=== PATIENT | male | born 1975 | race Caucasian/White ===

== ENCOUNTER 2017-08-03 08:32 | Inpatient (IN) | payer OTHER ==
[~2017-08-03 08:32] MED LIST: BACITRACIN 50,000 UNITS/10 ML SYR IRR ONE; BUPIVACAINE 0.25% 30 ML SDV ONE; CHLORHEXIDINE GLUC HIBICLENS 118 ML BTL TP ONE; CITRATE DEXTROSE SOLN 500 ML BAG ONE; THROMBIN (BOVINE) 20,000 UNIT VIAL TP ONE; TRANEXAMIC ACID 1,000 MG in NS (SYRINGE) 50 ML IV ONE
[2017-08-03] MEDS ORDERED: ceFAZolin 2 GM/SWFI 2 GM/20 ML SYR IVP ONE (09:35)
[2017-08-03] MEDS ORDERED: GABAPENTIN 300 MG CAP PO ONE (09:35)
[2017-08-03] MEDS ORDERED: fentaNYL 100 MCG/2 ML INJ IT ONE (09:35)
[2017-08-03] MEDS ORDERED: morphINE PF 5 MG/10 ML INJ IT ONE (09:35)
[2017-08-03] MEDS ORDERED: ACETAMINOPHEN 500 MG TAB PO ONE (09:35)
[2017-08-03] MEDS ORDERED: LR 1,000 ML IV ONE (09:36)
[2017-08-03] MEDS ORDERED: MORPHINE IT ONE (10:00)
[2017-08-03] MEDS ORDERED: FENTANYL IT ONE (10:00)
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
[2017-08-03] MEDS ORDERED: MIDAZOLAM 2 MG/2 ML VIAL IVP ONE (10:28)
[2017-08-03] MEDS ORDERED: fentaNYL 50 MCG in SYRINGE INTRATHECAL 1 SYR IT ONE (10:30)
[2017-08-03] MEDS ORDERED: morphINE PF 0.2 MG in SYRINGE INTRATHECAL 1 SYR IT ONE (10:30)
[2017-08-03] MEDS ORDERED: LIDOCAINE 2% 5 ML SDV ONE (10:44)
[2017-08-03] MEDS ORDERED: fentaNYL 100 MCG/2 ML INJ ONE ×4 (10:44→17:36)
[2017-08-03] MEDS ORDERED: PROPOFOL/EMULSION 500 MG/50 ML BOTTLE IV ONE ×3 (10:44→15:11)
[2017-08-03] MEDS ORDERED: PROPOFOL 200 MG/20 ML VIAL ONE (10:44)
[2017-08-03] MEDS ORDERED: REMIFENTANIL HCL 1 MG VIAL ONE ×3 (10:44→15:11)
[2017-08-03] MEDS ORDERED: ROCURONIUM 50 MG/5 ML VIAL ONE (10:44)
[2017-08-03] MEDS ORDERED: ONDANSETRON 4 MG/2 ML VIAL ONE ×2 (10:56→17:40)
[2017-08-03] MEDS ORDERED: DEXAMETHASONE 4 MG/ML VIAL ONE (10:56)
--- NOTE | 2017-08-03 11:23 | PDHPUP ---
History & Physical Update H&P update statement: This history and physical update is based on an assessment of the patient which was completed after admission or registration (within 24 hours), but prior to the surgery/procedure. H&P update: H&P reviewed & patient examined, no change in patient's condition since H&P completed
[2017-08-03] MEDS ORDERED: BACITRACIN 50,000 UNITS/10 ML SYR IRR ONE (12:32)
[2017-08-03] MEDS ORDERED: ceFAZolin 1 GM VIAL ONE (14:44)
[2017-08-03] MEDS ORDERED: morphINE PF 5 MG/10 ML INJ ONE (14:45)
[2017-08-03] MEDS ORDERED: epHEDrine SULFATE 10 MG/ML SYR IVP PRN (15:38)
[2017-08-03] MEDS ORDERED: ONDANSETRON 4 MG/2 ML VIAL IVP PRN ×2 (15:38→17:21)
[2017-08-03] MEDS ORDERED: LABETALOL HCL 5 MG/ML 20 ML MDV IVP PRN (15:38)
[2017-08-03] MEDS ORDERED: NALOXONE HCL 0.4 MG/ML INJ IVP PRN ×2 (15:38→17:21)
[2017-08-03] MEDS ORDERED: PROMETHAZINE HCL 25 MG/ML INJ IVP PRN (15:38)
[2017-08-03] MEDS ORDERED: LR 500 ML IV PRN (15:38)
[2017-08-03] MEDS ORDERED: PHENYLEPHRINE HCL 100 MCG/ML SYR IVP PRN (15:38)
[2017-08-03] MEDS ORDERED: DIAZEPAM 5 MG/ML 1 ML SYR IVP PRN (15:38)
[2017-08-03] MEDS ORDERED: morphINE PCA 30 MG/30 ML PCA IV PRN (17:21)
[2017-08-03] MEDS ORDERED: BISACODYL 10 MG SUPP PR PRN (17:21)
[2017-08-03] MEDS ORDERED: diphenhydrAMINE 25 MG CAP PO PRN (17:21)
[2017-08-03] MEDS ORDERED: LACTULOSE 20 GM/30 ML UDCUP PO PRN (17:21)
[2017-08-03] MEDS ORDERED: MAGNESIUM HYDROXIDE 30 ML UDCUP PO PRN (17:21)
[2017-08-03] MEDS ORDERED: NS W/ 20 KCl/L 1,000 ML IV SCH (17:30)
--- NOTE | 2017-08-03 17:30 | SOAPPROG ---
SOAP Progress Note Assessment/Plan: Assessment: 41 yo M sp L3-S1 TLIF Plan: stable PT/OT GÓMEZ x1 lovenox in am lso brace when out of bed please call with neuro changes 08/03/17 17:29 Subjective: + back pain, no leg pain. Objective: Vital Signs Temp Pulse Resp BP Pulse Ox 36.6 C 68 18 139/103 H 94 08/03/17 10:35 08/03/17 10:35 08/03/17 10:35 08/03/17 10:35 08/03/17 10:35 somnolent PERRL, no facial droop MARION x 4 + light touch ICD10 Worksheet Patient Problems: Problems Problem Status Onset Fusion of spine of lumbar region Acute - ICD10 Problem Qualifiers (1) Fusion of spine of lumbar region
[2017-08-03] MEDS: fentaNYL 100 MCG/2 ML INJ IVP PRN ×2 (17:39→17:46)
[2017-08-03] MEDS ORDERED: HYDROmorphONE/DILAUDID 2 MG/ML INJ ONE (17:59)
[2017-08-03] MEDS: HYDROmorphONE/DILAUDID 2 MG/ML INJ IVP PRN ×4 (18:02→18:35)
--- NOTE | 2017-08-03 18:29 | POSTANESTH ---
Post Anesthetic Evaluation Cardiovascular Status: Normal, Stable, Similar to Pre-Op Cond Respiratory Status: Normal, Stable, Similar to Pre-op Cond. Level of Consciousness/Mental Status: Can Participate in Eval, Alert and Oriented Pain Control: Adequate, Prn Tx Ordered Nausea/Vomiting Control: Adequate, Prn Tx Ordered Complications Possibly Related to Anesthesia: None Noted
--- NOTE | 2017-08-03 19:48 | GOP ---
[f rep st] OPERATIVE REPORT DATE OF OPERATION: 08/03/2017 SURGEON: Morales oLmeli MD NEUROSURGEON: Morales Lomeli MD. DRUG CLERK: KARMA Guerra. ANESTHESIA: General endotracheal. PREOPERATIVE DIAGNOSIS: Severe multilevel lumbar degenerative joint disease and neuroforaminal encro achment with lateral recess impingement. Intractable back pain and intractable right greater than le ft lower extremity radiculopathy. Failed conservative care. POSTOPERATIVE DIAGNOSIS: Severe multilevel lumbar degenerative joint disease and neuroforaminal encr oachment with lateral recess impingement. Intractable back pain and intractable right greater than l eft lower extremity radiculopathy. Failed conservative care. PROCEDURE PERFORMED: Redo right L4-5 and L5-S1 posterior hemilaminectomy and facetectomy with new ri ght L3-4 far lateral transpedicular decompression. L3 through S1 posterior segmental (pedicle screw and axle device) fixation and posterolateral fusion with local autograft, bone morphogenic protein, a nd morselized allograft. L3-4, L4-5, and L5-S1 posterior/transforaminal lumbar interbody fusion with 2 structural PEEK interbody spacers, local autograft and bone morphogenic protein. Use of intraoper ative microscopy, fluoroscopy, and computer volumetric stereotactic navigation with intraoperative ne urophysiologic testing. FINDINGS: ESTIMATED BLOOD LOSS: 300 cc. INDICATIONS: The patient is a 41-year-old man with intractable low back pain and right greater than left lower extremity radicular symptoms secondary to severe multilevel lumbar degenerative joint dise ase and lateral recess and neural foraminal encroachment. He has failed extensive conservative care and presents now for surgical decompression and stabilization. DESCRIPTION OF PROCEDURE: After informed consent was obtained, the patient was taken to the operatin g room and placed in the prone position on the Saul table. The lumbosacral area was prepped and d raped in sterile fashion. After fluoroscopic localization of the correct levels, the subcutaneous an d intramuscular tissues were infiltrated with local anesthesia. A midline linear incision was then c reated over the L3 to S1 spinous processes. This was carried down in the fascial layer, which was th en incised using the monopolar electrocautery and carried in a subperiosteal plane along the spinous processes and out the lamina bilaterally. Intraoperative fluoroscopy was again utilized to verify th e correct levels. Following this, the microscope was brought in and a right-sided far lateral transp edicular decompression was performed at the L3-4 level with redo decompression and facetectomies at L 4-5 and L5-S1 on the right. There was an extensive amount of scar tissue that required very meticulo us dissection under high-power microscopy to avoid a CSF leak, but eventually thorough decompression s were performed. The DearJane neuronavigational system was then brought in and using computer volume tric stereotactic navigation, pedicle screws were placed at L3, L4, L5, and S1 bilaterally. Each ind ividual screw was tested neurophysiologically with monopolar electrostimulation and interpretation of the potentials by the surgeon. One of the screws stimulated low at S1 on the right, and the O-arm n euronavigational system was then brought in and 3-D reconstructed images obtained. The screws all ap peared to be in good position. Serial distraction was created across each interspace at the L3-4, th en L4-5, then L5-S1 level separately, during which time a complete diskectomy was performed at each l evel with preparation of the endplates and placement of 2 structural PEEK interbody spacers, local au tograft and bone morphogenic protein for L3-4, L4-5 and L5-S1 posterior/transforaminal lumbar interbo dy fusions. The smaller rods were then removed and appropriately sized maximally lordotic rods were then placed at the L3 to S1 levels, and a slight amount of compression created across each interspace in order to facilitate bony union and to minimize the potential for posterior graft migration. The remaining lamina and facet joints on the left were then extensively decorticated, and the residual lo la autograft along with bone morphogenic protein and morselized allograft were placed out laterally for a posterolateral fusion from L3 to S1. A drain was then placed. The subcutaneous and intramuscu lar tissues were re-infiltrated with local anesthesia and the wound was closed in a layered fashion u sing interrupted Vicryl sutures followed by Steri-Strips on the skin. COMPLICATIONS: None. DISPOSITION: The patient is currently in the process of being repositioned for extubation. /[id number]/MODL
[2017-08-03] MEDS ORDERED: ceFAZolin 2 GM/DEXTROSE 100 ML IV SCH (22:00)
[2017-08-03] MEDS: PROMETHAZINE HCL 25 MG/ML INJ IVP PRN ×2 (22:07→22:52)
[2017-08-03] MEDS: ceFAZolin 2 GM/SWFI 2 GM/20 ML SYR IVP SCH (22:09)
[2017-08-03] MEDS: ACETAMINOPHEN 500 MG TAB PO SCH (23:00)
[2017-08-03] MEDS: FAMOTIDINE 20 MG TAB PO SCH (23:01)
[2017-08-03] MEDS: SENNOSIDES/DOCUSATE SODIUM TAB PO SCH (23:01)
[2017-08-03] MEDS: GABAPENTIN 100 MG CAP PO SCH (23:01)
[2017-08-03] MEDS: morphINE SR 30 MG TAB PO SCH (23:01)
[2017-08-03] MEDS: POLYETHYLENE GLYCOL 3350 17 GM PKT PO SCH (23:01)
[2017-08-04] MEDS: morphINE SR 30 MG TAB PO SCH ×3 (00:19→20:22)
[2017-08-04] MEDS: ONDANSETRON DISINTEGRATING 4 MG TAB PO PRN (00:20)
[2017-08-04] MEDS: PROMETHAZINE HCL 25 MG/ML INJ IVP PRN (04:56)
[2017-08-04] MEDS: oxyCODONE IR 5 MG TAB PO PRN ×3 (04:59→20:22)
[2017-08-04] MEDS: METHOCARBAMOL 750 MG TAB PO PRN ×3 (04:59→18:30)
[2017-08-04] MEDS: ceFAZolin 2 GM/SWFI 2 GM/20 ML SYR IVP SCH (05:01)
[2017-08-04 05:12] LABS: PLATELET COUNT 239 10^3/uL (150-400)
[2017-08-04] MEDS: ACETAMINOPHEN 500 MG TAB PO SCH ×3 (06:09→21:39)
--- NOTE | 2017-08-04 07:32 | NEUSURGPN ---
Date of Surgery: 08/03/17 Post Op Day: 1 Assessment/Plan: Assessment: 41 yo M s/p L3-S1 TLIF POD #1 Plan: -neuro stable -s/p TLIF L3-S1-pt with expected back pain, legs feel ok -pain management still an issue-working on switching to PO medications -will trial oral dilaudid as well as a transdermal patch scolopamine -continue with PT/OT -GÓMEZ x 1-still productive -lovenox to start today -LSO brace when out of bed -d/w Dr Boss -please call with neuro changes Subjective: Awake and alert. NAD. Eating/drinking and voiding. No f/c/n/v/d. No encinas/neck/ chest/abd or gu complaints. Objective: AAO x 3, PERRLA/EOMI no droop CN 2-12 grossly intact +lt touch 5/5 BUE/BLE = CDI GÓMEZ in place Neuro Check Frequency: per routine Urinary Catheter in Place: No - Physician Discussed Patient with DrSalas: Yani Neurosurgery Physical Exam - Vitals, I&O, Labs I and O 08/03/17 08/04/17 08/05/17 05:59 05:59 05:59 Intake Total 3500 Output Total 1120 70 Balance 2380 -70 Weight 97.522 kg Intake: Oral (ml) 1000 IV Intake (ml) 2500 Output: Urine (ml) 600 Catheter 600 Estimated Blood Loss (ml) 300 GÓMEZ Drain Output (ml) 220 70 Right Back Saul Kamara 220 70 Other: Number of Emesis 2 Occurrences Vital Signs Temp Pulse Resp BP Pulse Ox 36.8 C 61 16 101/73 98 08/04/17 04:40 08/04/17 04:40 08/04/17 04:40 08/04/17 04:40 08/04/17 04:40 Laboratory Results 08/04/17 04:40 08/04/17 04:40 ICD10 Worksheet Patient Problems: Problems Problem Status Onset Fusion of spine of lumbar region Acute
[2017-08-04] MEDS: HYDROmorphONE/DILAUDID 4 MG TAB PO PRN ×4 (08:28→20:20)
[2017-08-04] MEDS: SCOPOLAMINE HYDROBROMIDE 1 MG/3 DAYS PATCH TD SCH (08:28)
[2017-08-04] MEDS: SENNOSIDES/DOCUSATE SODIUM TAB PO SCH ×2 (08:34→20:21)
[2017-08-04] MEDS: ENOXAPARIN 40 MG/0.4 ML SYR SC SCH (08:35)
[2017-08-04] MEDS: FAMOTIDINE 20 MG TAB PO SCH ×2 (08:35→21:13)
[2017-08-04] MEDS: POLYETHYLENE GLYCOL 3350 17 GM PKT PO SCH ×3 (08:35→23:01)
[2017-08-04] MEDS ORDERED: NON-FORMULARY NEW DRUG (Ranitidine Hcl [Zantac 75] 75 MG) PO SCH (09:00)
--- NOTE | 2017-08-04 09:43 | PDMN ---
Medical Necessity Medical necessity: MCG S820 TLIF- 3 days INPT only
--- NOTE | 2017-08-04 15:36 | ASMTCMCOM ---
CM Note CM Note Notes: Pt s/p TLIF L3-S1. Today OT rec home, PT rec inpatient rehab. Pt resides w girlfriend and child. CM to follow. Date Signed: 08/04/2017 03:36 PM Electronically Signed By:JESSICA Jean
[2017-08-04] MEDS: GABAPENTIN 100 MG CAP PO SCH (20:20)
[2017-08-04] MEDS: DIAZEPAM 5 MG TAB PO PRN (21:39)
[2017-08-05] MEDS: HYDROmorphONE/DILAUDID 4 MG TAB PO PRN ×5 (01:57→20:36)
[2017-08-05] MEDS: METHOCARBAMOL 750 MG TAB PO PRN ×3 (01:58→13:55)
[2017-08-05] MEDS: oxyCODONE IR 5 MG TAB PO PRN ×3 (05:28→18:43)
[2017-08-05] MEDS: DIAZEPAM 5 MG TAB PO PRN ×3 (05:28→20:36)
[2017-08-05] MEDS: ACETAMINOPHEN 500 MG TAB PO SCH ×3 (05:38→22:07)
--- NOTE | 2017-08-05 07:17 | NEUSURGPN ---
Date of Surgery: 08/03/17 Post Op Day: 2 Assessment/Plan: Assessment: 41 yo M s/p L3-S1 TLIF POD #2 Plan: -neuro stable -s/p TLIF L3-S1-pt with expected back pain, legs feel ok -pain management still an issue-working on switching to PO medications-better with valium -will trial oral dilaudid as well as a transdermal patch scolopamine -continue with PT/OT -GÓMEZ x 1-still productive -on lovenox -LSO brace when out of bed -d/w and seen by Dr Boss -please call with neuro changes Subjective: Pt has much better pain control today, states yesterday was the worst He says the valium has been the most helpful. Currently just having pain over incision site, and in the right buttock Both improved from yesterday, currently 6/10 pain He says he is hoping to get up and do more with PT/OT Yesterday was only able to take a few steps and sit at bedside due to pain Objective: AAO x 3, PERRLA/EOMI no droop CN 2-12 grossly intact +lt touch 5/5 BUE/BLE = CDI GÓMEZ in place Neuro Check Frequency: per routine Urinary Catheter in Place: No - Physician Discussed Patient with : Yani Patient Seen by : Yani Neurosurgery Physical Exam - Vitals, I&O, Labs I and O 08/04/17 08/05/17 08/06/17 05:59 05:59 05:59 Intake Total 3500 2830 Output Total 1120 2445 Balance 2380 385 Weight 97.522 kg Intake: Oral (ml) 1000 2830 IV Intake (ml) 2500 Output: Urine (ml) 600 2020 Catheter 600 Urinal 2020 Estimated Blood Loss (ml) 300 GÓMEZ Drain Output (ml) 220 425 Right Back Saul Kamara 220 425 Other: Intake Quantity Yes Sufficient Number of Voids Catheter 2 Urinal 2 Number of Emesis 2 Occurrences Vital Signs Temp Pulse Resp BP Pulse Ox 36.5 C 61 16 125/70 H 97 08/05/17 04:00 08/05/17 04:00 08/05/17 04:00 08/05/17 04:00 08/05/17 04:00 Laboratory Results 08/04/17 04:40 08/04/17 04:40 ICD10 Worksheet Patient Problems: Problems Problem Status Onset Fusion of spine of lumbar region Acute
[2017-08-05] MEDS: POLYETHYLENE GLYCOL 3350 17 GM PKT PO SCH ×3 (09:28→22:07)
[2017-08-05] MEDS: SENNOSIDES/DOCUSATE SODIUM TAB PO SCH ×2 (09:28→20:37)
[2017-08-05] MEDS: ENOXAPARIN 40 MG/0.4 ML SYR SC SCH (09:29)
[2017-08-05] MEDS: FAMOTIDINE 20 MG TAB PO SCH ×2 (09:29→20:37)
[2017-08-05] MEDS: morphINE SR 30 MG TAB PO SCH ×2 (09:29→20:35)
[2017-08-05] MEDS: ONDANSETRON DISINTEGRATING 4 MG TAB PO PRN (09:36)
--- NOTE | 2017-08-05 14:17 | ASMTCMCOM ---
CM Note CM Note Notes: Spoke w pt and family, pt wants to d/c home and is open to [facility]. Pain management still an issue. Pt does not qualify for [facility] inpatient rehab. CM to follow. Date Signed: 08/05/2017 02:17 PM Electronically Signed By:JESSICA Jean
[2017-08-05] MEDS: GABAPENTIN 100 MG CAP PO SCH (20:34)
[2017-08-06] MEDS: HYDROmorphONE/DILAUDID 4 MG TAB PO PRN ×6 (00:20→21:29)
[2017-08-06] MEDS: METHOCARBAMOL 750 MG TAB PO PRN ×5 (04:41→23:25)
[2017-08-06] MEDS: ACETAMINOPHEN 500 MG TAB PO SCH ×2 (06:06→13:00)
[2017-08-06] MEDS: oxyCODONE IR 5 MG TAB PO PRN ×3 (06:30→23:25)
--- NOTE | 2017-08-06 07:27 | SOAPPROG ---
SOAP Progress Note Assessment/Plan: Assessment: 41 yo M POD #3 L3-S1 TLIF Plan: stable post op x-rays show good position of the hardware PT/OT GÓMEZ x1 lovenox/scd/sandrita for dvt prophylaxis lso brace when out of bed DC product specialist to evaluate rehab options ok to dc today if placement available please call with neuro changes discussed with Dr Boss 08/03/17 17:29 08/06/17 07:25 Subjective: continued back pain and pain in right thigh. No weakness. Objective: Vital Signs Temp Pulse Resp BP Pulse Ox 36.9 C 91 16 105/63 97 08/06/17 00:00 08/06/17 00:00 08/06/17 00:00 08/06/17 00:00 08/06/17 00:00 Laboratory Results 08/04/17 04:40 08/04/17 04:40 08/05/17 08/06/17 08/07/17 05:59 05:59 05:59 Intake Total 2830 1500 700 Output Total 2445 2470 490 Balance 385 -970 210 AAOx4, +FC PERRL, no facial droop 5/5 + light touch C/D/I ICD10 Worksheet Patient Problems: Problems Problem Status Onset Fusion of spine of lumbar region Acute - ICD10 Problem Qualifiers (1) Fusion of spine of lumbar region
[2017-08-06] MEDS: FAMOTIDINE 20 MG TAB PO SCH ×2 (08:39→20:37)
[2017-08-06] MEDS: ENOXAPARIN 40 MG/0.4 ML SYR SC SCH (08:39)
[2017-08-06] MEDS: SENNOSIDES/DOCUSATE SODIUM TAB PO SCH ×2 (08:40→23:23)
[2017-08-06] MEDS: POLYETHYLENE GLYCOL 3350 17 GM PKT PO SCH ×3 (08:41→23:23)
[2017-08-06] MEDS: morphINE SR 30 MG TAB PO SCH ×2 (08:41→20:36)
[2017-08-06] MEDS: ONDANSETRON DISINTEGRATING 4 MG TAB PO PRN ×2 (10:02→20:38)
--- NOTE | 2017-08-06 15:22 | ASMTCMCOM ---
CM Note CM Note Notes: Today pt and verbalized d/c home is not the safest right now especially since pt will have to return work, leaving pt alone for a significant portion of the day. SNF referrals sent to [facility] and [facility]. Pt is accepted at all SNFs and [facility] has authorized SNF. [facility] is pt #1 choice due to location. There is no bed availability today at any of the SNF choices, d/c likely tomorrow. Pt would prefer an am d/c and transport since she has to work at 12:30. CM to follow. D/c plan of care: [facility] SN[facility] Date Signed: 08/06/2017 03:21 PM Electronically Signed By:JESSICA Jean
[2017-08-06] MEDS: DIAZEPAM 5 MG TAB PO PRN (20:36)
[2017-08-06] MEDS: GABAPENTIN 100 MG CAP PO SCH (20:37)
[2017-08-06] MEDS: PATCH REMOVAL 1 EA PATCH TD SCH (23:51)
[2017-08-07] MEDS: ACETAMINOPHEN 500 MG TAB PO SCH ×3 (00:39→14:49)
[2017-08-07] MEDS: HYDROmorphONE/DILAUDID 4 MG TAB PO PRN ×4 (02:40→14:50)
[2017-08-07] MEDS: METHOCARBAMOL 750 MG TAB PO PRN ×3 (05:53→14:50)
[2017-08-07] MEDS: morphINE SR 30 MG TAB PO SCH (08:20)
[2017-08-07] MEDS: ENOXAPARIN 40 MG/0.4 ML SYR SC SCH (08:20)
[2017-08-07] MEDS: FAMOTIDINE 20 MG TAB PO SCH (08:20)
[2017-08-07] MEDS: SCOPOLAMINE HYDROBROMIDE 1 MG/3 DAYS PATCH TD SCH (08:21)
[2017-08-07] MEDS: PATCH REMOVAL 1 EA PATCH TD SCH (08:21)
[2017-08-07] MEDS: POLYETHYLENE GLYCOL 3350 17 GM PKT PO SCH (08:22)
[2017-08-07] MEDS: SENNOSIDES/DOCUSATE SODIUM TAB PO SCH (08:22)
[2017-08-07] MEDS: oxyCODONE IR 5 MG TAB PO PRN ×2 (08:25→11:56)
[2017-08-07 09:00] VITALS: BP 117/88
[2017-08-07] MEDS: ONDANSETRON DISINTEGRATING 4 MG TAB PO PRN ×2 (09:56→14:52)
--- NOTE | 2017-08-07 10:06 | NEUSURGPN ---
Assessment/Plan: Assessment: 41 yo M POD #4 L3-S1 TLIF Plan: stable post op x-rays show good position of the hardware PT/OT GÓMEZ x1 - will see if pt can go to SNF with this or not. lovenox/scd/sandrita for dvt prophylaxis lso brace when out of bed Plan to dc today to SNF please call with neuro changes discussed with Dr Boss Subjective: Pt resting in bed, had a rough night pain [place]. Ready to go to SNF. States he is improving overall over the past few days. Objective: AAOx3 NAD VSS MAEx4 Motor 5/5 BLE +LT GÓMEZ drain with serosangineous dc in bulb Urinary Catheter in Place: No - Physician Discussed Patient with Dr.: Yani Neurosurgery Physical Exam - Vitals, I&O, Labs I and O 08/06/17 08/07/17 08/08/17 05:59 05:59 05:59 Intake Total 1500 700 800 Output Total 2470 520 770 Balance -970 180 30 Intake: Oral (ml) 1500 700 800 Output: Urine (ml) 2300 450 700 Toilet 700 Urinal 2300 450 GÓMEZ Drain Output (ml) 170 70 70 Right Back Saul Kamara 170 70 70 Other: Intake Quantity Yes Sufficient Number of Voids Toilet 2 Urinal 1 Number of Stools Toilet 1 Vital Signs Temp Pulse Resp BP Pulse Ox 36.8 C 75 15 117/88 H 96 08/07/17 08:00 08/07/17 08:00 08/07/17 08:00 08/07/17 08:00 08/07/17 08:00 Laboratory Results 08/04/17 04:40 08/04/17 04:40 ICD10 Worksheet Patient Problems: Problems Problem Status Onset Fusion of spine of lumbar region Acute
--- NOTE | 2017-08-07 10:13 | PDIAF ---
- Diagnosis Code Status: Full Code - Medication Management Discharge Medications: Medications to Continue on Transfer Gabapentin [Neurontin 100 MG (*)] 100 - 300 mg PO HS 07/27/17 [Last Taken Unknown] Diazepam [Valium 5 MG (*)] 5 mg PO Q6HRS PRN tab 08/07/17 [Last Taken Unknown] Enoxaparin [Lovenox 40 MG (*)] 40 mg SC DAILY syr 08/07/17 [Last Taken Unknown] HYDROmorphone HCL [Dilaudid 4 mg (*)] 4 mg PO Q4HRS PRN tab 08/07/17 [Last Taken Unknown] Methocarbamol [Robaxin 750 mg (*)] 750 mg PO QID PRN tab 08/07/17 [Last Taken Unknown] Polyethylene Glycol 3350 [Miralax 17 gm (*)] 17 gm PO TID pkt 08/07/17 [Last Taken Unknown] morphINE SR [MS Contin/Oramorph SR 30 mg (*)] 30 mg PO BID tab 08/07/17 [Last Taken Unknown] oxyCODONE IR [Oxycodone Ir (*)] 5 - 10 mg PO Q4HRS PRN tab 08/07/17 [Last Taken Unknown] Discharge Medications: Refer to the Discharge Home Medication list for PRN reason. - Orders Services needed: Registered Nurse, Physical Therapy, Occupational Therapy Diet Recommendation: no restrictions on diet Diet Texture: Regular Texture Diet Wound Care Instructions: Remove GÓMEZ drain on 08/08/17 Additional Instructions: No bending/lifting/twisting wear brace when out of bed 5-10lb weight limit Keep incision clean dry and intact Remove GÓMEZ drain on Thursday08/08/17 - Follow Up Care Current Providers and Referrals: Lary Candelaria NP [Primary Care Provider] - Morales Lomeli MD [Medical Doctor] -
--- NOTE | 2017-08-07 16:34 | ASMTCMCOM ---
CM Note CM Note Notes: Pt medically stable for d/c to [facility] SNF, [facility] auth is for 14 days. Mora with [facility] scheduled wc van transport, pt declined paying for stretcher. Orders sent in [employer]. [facility] to call report. Pt family updated. Date Signed: 08/07/2017 04:33 PM Electronically Signed By:JESSICA Jean
--- NOTE | 2017-08-07 16:34 | ASDISCHSUM ---
Discharge Information Plan Status:SNF Medically Cleared to Leave: Discharge Date:08/07/2017 03:10 PM CM D/C Disposition:Detention Facility ADT D/C Disposition:Detention Facility Projected Discharge Date:08/06/2017 11:00 AM Transportation at D/C:Wheelchair Van Discharge Delay Reason: Follow-Up Date:08/06/2017 11:00 AM Discharge Slot: Final Diagnosis: Placement Information Referral Type:*Fpc/SNF Referral ID:[id number] Provider Name:[facility] Address 1:[address] Address 2: City:[place] Selection Factors: State:[place] Patient Contact Information Contact Name:JALYN Relationship:Other Address:[address] Work Phone: City:[place] Alternate Phone: State/Zip Code:[place] [address] Email: Financial Information Financial Class:[facility] Primary Plan Desc:[facility] Primary Plan Number:[id number] Secondary Plan Desc: Secondary Plan Number: Assessment Information [facility] CM Progress Note CM Note CM Note Notes: Pt s/p TLIF L3-S1. Today OT rec home, PT rec inpatient rehab. Pt resides w girlfriend and child. CM to follow. Date Signed: 08/04/2017 03:36 PM Electronically Signed By:JESSICA Jean [facility] CM Progress Note CM Note CM Note Notes: Spoke w pt and family, pt wants to d/c home and is open to [facility]. Pain management still an issue. Pt does not qualify for [facility] inpatient rehab. CM to follow. Date Signed: 08/05/2017 02:17 PM Electronically Signed By:JESSICA Jean [facility] CM Progress Note CM Note CM Note Notes: Today pt and verbalized d/c home is not the safest right now especially since pt will have to return work, leaving pt alone for a significant portion of the day. SNF referrals sent to [facility] and [facility]. Pt is accepted at all [facility] and [facility] has authorized SNF. [facility] is pt #1 choice due to location. There is no bed availability today at any of the SNF choices, d/c likely tomorrow. Pt would prefer an am d/c and transport since she has to work at 12:30. CM to follow. D/c plan of care: [facility] Date Signed: 08/06/2017 03:21 PM Electronically Signed By:JESSICA Jean [facility] CM Progress Note CM Note CM Note Notes[facility] Mora with [facility] scheduled wc van transport, pt declined paying for stretcher. Orders sent in [employer]. [facility] Sal[facility] to call report. Pt family updated. Date Signed: 08/07/2017 04:33 PM Electronically Signed By:JESSICA Jean Intervention Information
== END 2017-08-07 15:10 | DRG 455 ==
LOC: F3N 08:32
PROVIDERS: ADMIT Neurological Surgery; ATTEND Neurological Surgery
PROC: 0SG1071 Fusion of 2 or more Lumbar Vertebral Joints with Autologous Tissue Substitute, Posterior Approach, Posterior Column, Open Approach (ICD-10-PCS; principal; 2017-08-03 10:45)
PROC: 0ST20ZZ Resection of Lumbar Vertebral Disc, Open Approach (ICD-10-PCS; principal; 2017-08-03 10:45)
PROC: 0SG10AJ Fusion of 2 or more Lumbar Vertebral Joints with Interbody Fusion Device, Posterior Approach, Anterior Column, Open Approach (ICD-10-PCS; principal; 2017-08-03 10:45)
PROC: 8E0WXBZ Computer Assisted Procedure of Trunk Region (ICD-10-PCS; principal; 2017-08-03 10:45)
PROC: 0SG3071 Fusion of Lumbosacral Joint with Autologous Tissue Substitute, Posterior Approach, Posterior Column, Open Approach (ICD-10-PCS; principal; 2017-08-03 10:45)
PROC: 4A1004G Monitoring of Central Nervous Electrical Activity, Intraoperative, Open Approach (ICD-10-PCS; principal; 2017-08-03 10:45)
PROC: 00NY0ZZ Release Lumbar Spinal Cord, Open Approach (ICD-10-PCS; principal; 2017-08-03 10:45)
PROC: 0SG30AJ Fusion of Lumbosacral Joint with Interbody Fusion Device, Posterior Approach, Anterior Column, Open Approach (ICD-10-PCS; principal; 2017-08-03 10:45)
DX: M51.36 Other intervertebral disc degeneration, lumbar region (principal); M51.16 Intervertebral disc disorders with radiculopathy, lumbar region; E03.9 Hypothyroidism, unspecified
CPT/HCPCS: 97110-GP; 97116-GP; 97162-GP; 97165-GO; 97530-GO; 97530-GP; 97535-GO; C1713; C1762; J0171; J0690; J1100; J1170; J1650; J2250; J2270; J2274; J2405; J2550; J2704; J3010; J7060

== ENCOUNTER 2018-05-13 05:26 | Inpatient (IN) | payer OTHER ==
[2018-05-13] MEDS ORDERED: GABAPENTIN 300 MG CAP PO ONE (05:38)
[2018-05-13] MEDS ORDERED: ACETAMINOPHEN 500 MG TAB PO ONE (05:38)
[2018-05-13] MEDS ORDERED: fentaNYL 50 MCG in SYRINGE INTRATHECAL 1 SYR IT ONE (05:38)
[2018-05-13] MEDS ORDERED: morphINE PF 0.2 MG in SYRINGE INTRATHECAL 1 SYR IT ONE (05:38)
[2018-05-13] MEDS ORDERED: ceFAZolin 2 GM/DEXTROSE 100 ML IV ONE (05:38)
[2018-05-13] MEDS ORDERED: LIDOCAINE 1% 2 ML INJ ID PRN (05:39)
[2018-05-13] MEDS ORDERED: LR 1,000 ML IV ONE (05:39)
[2018-05-13] MEDS ORDERED: CHLORHEXIDINE GLUC HIBICLENS 118 ML BTL TP ONE (06:43)
[2018-05-13] MEDS ORDERED: BUPIVACAINE 0.25% 30 ML SDV ONE ×2 (06:43→08:02)
[2018-05-13] MEDS ORDERED: EPINEPHrine 1 MG/ML INJ ONE (06:43)
[2018-05-13] MEDS ORDERED: THROMBIN (BOVINE) 5,000 UNIT VIAL TP ONE (06:43)
[2018-05-13] MEDS ORDERED: BACITRACIN 50,000 UNITS/10 ML SYR IRR ONE (06:44)
[2018-05-13] MEDS ORDERED: MIDAZOLAM 2 MG/2 ML VIAL ONE (07:05)
[2018-05-13] MEDS ORDERED: MIDAZOLAM 2 MG/2 ML VIAL IVP ONE (07:06)
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
[2018-05-13] MEDS ORDERED: REMIFENTANIL HCL 1 MG VIAL ONE (07:09)
[2018-05-13] MEDS ORDERED: PROPOFOL/EMULSION 500 MG/50 ML BOTTLE IV ONE (07:09)
[2018-05-13] MEDS ORDERED: PROPOFOL 200 MG/20 ML VIAL ONE (07:09)
[2018-05-13] MEDS ORDERED: fentaNYL 100 MCG/2 ML INJ ONE ×2 (07:13→09:55)
[2018-05-13] MEDS ORDERED: ROCURONIUM 50 MG/5 ML VIAL ONE (07:20)
[2018-05-13] MEDS ORDERED: DEXAMETHASONE 4 MG/ML VIAL ONE (08:14)
[2018-05-13] MEDS ORDERED: HYDROmorphONE/DILAUDID 2 MG/ML INJ ONE ×3 (08:51→12:15)
[2018-05-13] MEDS ORDERED: ONDANSETRON 4 MG/2 ML VIAL ONE (08:56)
[2018-05-13] MEDS ORDERED: METOCLOPRAMIDE 10 MG/2 ML VIAL IVP PRN (09:13)
[2018-05-13] MEDS ORDERED: PROMETHAZINE HCL 25 MG/ML INJ IVP PRN (09:13)
[2018-05-13] MEDS ORDERED: NALOXONE HCL 0.4 MG/ML INJ IVP PRN (09:13)
[2018-05-13] MEDS ORDERED: ALBUTEROL 3 ML DEYVIAL IH PRN (09:13)
[2018-05-13] MEDS ORDERED: MEPERIDINE 25 MG/0.5 ML AMP IVP PRN (09:13)
[2018-05-13] MEDS ORDERED: ONDANSETRON 4 MG/2 ML VIAL IVP PRN ×2 (09:13→13:12)
--- NOTE | 2018-05-13 09:36 | SOAPPROG ---
SOAP Progress Note Assessment/Plan: Assessment: 42 yo M sp right L3-S1 hardware removal with L5/s1 foraminotomy and replacement of hardware. Plan: stable to OCC ok to dc home after 4 hours please call with neuro changes 05/13/18 09:35 Subjective: + back pain, no leg pain. Objective: Vital Signs Temp Pulse Resp BP Pulse Ox 37.0 C 74 14 119/84 H 93 05/13/18 07:06 05/13/18 07:06 05/13/18 07:06 05/13/18 07:06 05/13/18 07:06 somnolent PERRL, no facial droop MARION x 4 + light touch ICD10 Worksheet Patient Problems: Problems Problem Status Onset Fusion of spine of lumbar region Acute
[2018-05-13] MEDS ORDERED: DIAZEPAM 5 MG/ML 1 ML SYR ONE (09:55)
[2018-05-13] MEDS: fentaNYL 100 MCG/2 ML INJ IVP PRN ×2 (09:57→10:23)
[2018-05-13] MEDS: DIAZEPAM 5 MG/ML 1 ML SYR IVP PRN ×2 (10:00→10:54)
[2018-05-13] MEDS ORDERED: oxyCODONE IR 5 MG TAB PO PRN (10:14)
--- NOTE | 2018-05-13 10:23 | GOP ---
[f rep st] OPERATIVE REPORT DATE OF OPERATION: 05/13/2018 SURGEON: Morales Lomeli MD [employer] DEVELOPER: Jose Arrington PA-C. ANESTHESIA: General endotracheal. 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 PROCEDURE PERFORMED: Removal of posterior segmental (pedicle screw) fixation with exploration of spi nal fusion and reinsertion of spinal fixation device. Placement of posterior segmental (pedicle scre w) fixation and redo L5-S1 posterolateral fusion. Removal of bony overgrowth causing severe impingem ent of the right S1 and L5 nerve roots. Use of intraoperative microscopy and fluoroscopy. FINDINGS: ESTIMATED BLOOD LOSS: 50 cc. INDICATIONS: The patient is a 42-year-old man who recently underwent an L3-S1 decompression and stab ilization with instrumentation and fusion who did extremely well initially but then developed right l ower extremity L5 and S1 distribution radicular pain that failed to improve with conservative care, a nd on MRI and CT was felt to be secondary to some bony overgrowth out of the L5-S1 disk space on the right that was touching the S1 and L5 nerve roots. He presents now for removal of this bony overgrow th and removal and replacement of the instrumentation and evaluation of the fusion. DESCRIPTION OF PROCEDURE: After informed consent was obtained, the patient was taken to the operatin g room and placed in the prone position on the Saul table. The lumbosacral area was prepped and d raped in a sterile fashion and after fluoroscopic localization of the correct level, the subcutaneous and intramuscular tissues were infiltrated with local anesthesia. A midline linear incision was the n created over the L5-S1 spinous processes. This was carried down to the fascial layer, which was th en incised using monopolar electrocautery and carried in the subperiosteal plane along the spinous pr ocess, out the lamina on the right or what was left of the S1 lamina. The L5 lamina was mostly gone. The anatomy was very carefully dissected out and the pedicle screws and tory were blocking the right L5 neuroforamen access to the area. The incision was therefore extended up to L3 and dissection car ried out to the pedicle screws and rods. The locking caps were removed from L3-S1 along with the tory and the L5 and S1 pedicle screws were also removed. The L5-S1 fusion along with the L3-4 and L4-5 f usions were explored and inspected and it was not clear whether the fusion was solid yet or not given that there was still a tory in the left side extending from the L3-S1. The microscope was brought in and the dissection was very carefully carried down to the L5-S1 disk space and the L5 and S1 neural foramina were carefully cleaned out. Care was taken to CSF leak. The bony overgrowth was identified and carefully removed with straight and reverse angle curettes and the Kerrison rongeurs, and the [employer] drill system with the bur. Following complete removal of this and forami notomies, the wound was copiously irrigated with antibiotic irrigation. Meticulous hemostasis was ach ieved. The new larger diameter screws were then placed at L5 and S1 and each screw was tested neurop hysiologically with monopolar electrostimulation and interpretation of the potentials by the surgeon. The prior tory was then reinserted at L3 through S1 and new locking caps placed and secured. The mirella ne that had been drilled away and removed from the foramina was then placed out laterally away from t he neural foramina but to reinforce the posterolateral fusion at L5-S1. The wound was then copiously irrigated further and meticulous hemostasis was achieved. 50 mcg of fentanyl were injected intrathe filiberto for postoperative pain control. A drain was placed. The subcutaneous and intramuscular tissue s were re-infiltrated with local anesthesia. The wound was closed in a layered fashion using interru pted Vicryl sutures, followed by Steri-Strips on the skin. COMPLICATIONS: None. DISPOSITION: The patient was extubated and transferred to the recovery room in stable condition. /[id number]/MODL
[2018-05-13] MEDS ORDERED: TRANEXAMIC ACID 1,000 MG in NS 100 ML IV ONE (10:30)
--- NOTE | 2018-05-13 11:02 | POSTANESTH ---
Post Anesthetic Evaluation Cardiovascular Status: Normal, Stable Respiratory Status: Normal, Stable Level of Consciousness/Mental Status: Mildly Sleepy, Arousable Pain Control: Adequate, Prn Tx Ordered Nausea/Vomiting Control: Adequate, Prn Tx Ordered Complications Possibly Related to Anesthesia: None Noted
[2018-05-13] MEDS: HYDROmorphONE/DILAUDID 2 MG/ML INJ IVP PRN ×4 (11:16→13:24)
[2018-05-13] MEDS ORDERED: METHOCARBAMOL 500 MG TAB ONE (12:15)
[2018-05-13] MEDS ORDERED: METHOCARBAMOL 500 MG TAB PO ONE (12:30)
[2018-05-13] MEDS ORDERED: MAGNESIUM HYDROXIDE 30 ML UDCUP PO PRN (13:12)
[2018-05-13] MEDS ORDERED: ONDANSETRON DISINTEGRATING 4 MG TAB PO PRN (13:12)
[2018-05-13] MEDS ORDERED: LACTULOSE 20 GM/30 ML UDCUP PO PRN (13:12)
[2018-05-13] MEDS ORDERED: HYDROmorphONE/DILAUDID 1 MG/ML INJ IVP PRN (13:12)
[2018-05-13] MEDS ORDERED: diphenhydrAMINE 25 MG CAP PO PRN (13:12)
[2018-05-13] MEDS ORDERED: BISACODYL 10 MG SUPP PR PRN (13:12)
[2018-05-13] MEDS ORDERED: NS 1,000 ML IV SCH (13:15)
[2018-05-13] MEDS: ceFAZolin 2 GM/DEXTROSE 100 ML IV SCH ×2 (14:39→21:47)
[2018-05-13] MEDS: POLYETHYLENE GLYCOL 3350 17 GM PKT PO SCH ×2 (15:44→21:45)
[2018-05-13] MEDS: GABAPENTIN 100 MG CAP PO SCH ×2 (15:44→21:43)
--- NOTE | 2018-05-13 16:40 | PDMN ---
Medical Necessity Medical necessity: [facility] [place] S820 lumbar fusion: [facility] INPT only removal of posterior segmental fixation with exploration of spinal fusion and reinsertion of spinal fixation device. Placement of posterior segmental fixation and redo L5-S1 posterolateral fusion.
[2018-05-13] MEDS ORDERED: oxyCODONE IR 5 MG TAB PO ONE (17:30)
[2018-05-13] MEDS: oxyCODONE IR 5 MG TAB PO PRN ×2 (18:58→23:17)
[2018-05-13] MEDS ORDERED: FAMOTIDINE 20 MG TAB PO SCH (21:00)
[2018-05-13] MEDS: METHOCARBAMOL 750 MG TAB PO SCH (21:43)
[2018-05-13] MEDS: ACETAMINOPHEN 500 MG TAB PO SCH (21:43)
[2018-05-13] MEDS: FAMOTIDINE 20 MG TAB PO SCH (21:44)
[2018-05-13] MEDS: SENNOSIDES/DOCUSATE SODIUM TAB PO SCH (21:44)
[2018-05-14] MEDS: oxyCODONE IR 5 MG TAB PO PRN ×5 (03:42→20:43)
[2018-05-14 05:38] LABS: PLATELET COUNT 255 10^3/uL (150-400)
[2018-05-14] MEDS: ACETAMINOPHEN 500 MG TAB PO SCH ×3 (06:43→22:21)
--- NOTE | 2018-05-14 06:56 | SOAPPROG ---
SOAP Progress Note Assessment/Plan: Assessment: 42 yo male POD #1 sp removal of right sided L3-S1 tory and L5/1 foraminotomy and replacement of tory Doing well. Right leg still feels numb. Denies new weakness or tingling Plan: PT/OT Continue GÓMEZ DC planning Dr. Boss saw patient this AM 05/14/18 06:55 05/14/18 07:23 05/14/18 07:24 05/14/18 07:24 Subjective: lying in bed, pain well controlled, increases when he rolls over. He denies new numbness, tingling or weakness Objective: Vital Signs Temp Pulse Resp BP Pulse Ox 36.6 C 69 16 108/71 96 05/14/18 03:48 05/14/18 03:48 05/14/18 03:48 05/14/18 03:48 05/14/18 03:48 Laboratory Results 05/14/18 04:57 05/14/18 04:57 05/13/18 05/14/18 05/15/18 05:59 05:59 05:59 Intake Total 1025 Output Total 2635 Balance -1610 Incision: CDI GÓMEZ: 110ml since surgery Neuro: MONTENEGRO, Sens +LT follows commands 5/5 bilateral LE ICD10 Worksheet Patient Problems: Problems Problem Status Onset Fusion of spine of lumbar region Acute
[2018-05-14] MEDS: GABAPENTIN 100 MG CAP PO SCH ×3 (08:14→22:21)
[2018-05-14] MEDS: SENNOSIDES/DOCUSATE SODIUM TAB PO SCH ×2 (08:14→20:43)
[2018-05-14] MEDS: METHOCARBAMOL 750 MG TAB PO SCH ×3 (08:14→22:22)
[2018-05-14] MEDS: POLYETHYLENE GLYCOL 3350 17 GM PKT PO SCH ×3 (08:15→23:40)
[2018-05-14] MEDS: FAMOTIDINE 20 MG TAB PO SCH ×2 (08:15→20:43)
[2018-05-14] MEDS: ENOXAPARIN 40 MG/0.4 ML SYR SC SCH (08:15)
--- NOTE | 2018-05-14 17:16 | ASMTCMCOM ---
CM Note CM Note Notes: Patient is s/p L3-S1 hardware removal and replacement of hardware. Therapy have evaluated and cleared for discharge. No CM needs identified at this time. We are available should something change. Plan: Likely Independent Date Signed: 05/14/2018 05:16 PM Electronically Signed By:Michelle Huerta RN
[2018-05-15] MEDS: oxyCODONE IR 5 MG TAB PO PRN ×7 (00:54→23:55)
[2018-05-15] MEDS: ACETAMINOPHEN 500 MG TAB PO SCH ×3 (06:18→22:31)
--- NOTE | 2018-05-15 08:43 | NEUSURGPN ---
Date of Surgery: 05/13/18 Post Op Day: 2 Assessment/Plan: 42 yo male POD #2 sp removal of right sided L3-S1 tory and L5/1 foraminotomy and replacement of tory - neuro stable, continues to have left leg numbness - GÓMEZ drain x 1 with 65 cc output in last 24 hours - PT/OT - postop L-spine x-rays pending - SCDs/TEDs, Lovenox - Dispo: possibly later today if continues to progress well Subjective: Having right LE numbness. Objective: Awake. Alert. PERRL. EOMI Muscle strength full at 5/5 Following commands - Physician Discussed Patient with : [facility] Neurosurgery Physical Exam - Vitals, I&O, Labs I and O 05/14/18 05/15/18 05/16/18 05:59 05:59 05:59 Intake Total 1025 1100 Output Total 2635 2365 175 Balance -1610 -1265 -175 Weight 97.522 kg Intake: Oral (ml) 25 1100 IV Intake (ml) 1000 Output: Urine (ml) 2375 2300 175 Catheter 200 Urinal 2175 2300 175 Estimated Blood Loss (ml) 150 GÓMEZ Drain Output (ml) 110 65 #1 Right Back Saul 110 65 Kamara Other: Intake Quantity Yes Sufficient Number of Voids Urinal 1 1 1 Vital Signs Temp Pulse Resp BP Pulse Ox 36.7 C 49 L 17 110/76 95 05/15/18 00:00 05/15/18 00:00 05/15/18 00:00 05/15/18 00:00 05/15/18 00:00 Laboratory Results 05/14/18 04:57 05/14/18 04:57 ICD10 Worksheet Patient Problems: Problems Problem Status Onset Fusion of spine of lumbar region Acute
[2018-05-15] MEDS: METHOCARBAMOL 750 MG TAB PO SCH ×3 (08:59→22:31)
[2018-05-15] MEDS: GABAPENTIN 100 MG CAP PO SCH ×3 (08:59→22:30)
[2018-05-15] MEDS: SENNOSIDES/DOCUSATE SODIUM TAB PO SCH ×2 (08:59→20:14)
[2018-05-15] MEDS: FAMOTIDINE 20 MG TAB PO SCH ×2 (08:59→20:13)
[2018-05-15] MEDS: POLYETHYLENE GLYCOL 3350 17 GM PKT PO SCH ×3 (09:00→23:10)
[2018-05-15] MEDS: ENOXAPARIN 40 MG/0.4 ML SYR SC SCH (09:03)
[2018-05-16] MEDS: oxyCODONE IR 5 MG TAB PO PRN ×3 (04:54→11:05)
[2018-05-16] MEDS: ACETAMINOPHEN 500 MG TAB PO SCH (05:57)
[2018-05-16 07:56] VITALS: BP 117/81
--- NOTE | 2018-05-16 08:02 | NEUSURGPN ---
Date of Surgery: 05/13/18 Post Op Day: 3 Assessment/Plan: 42 yo male POD #3 sp removal of right sided L3-S1 tory and L5/1 foraminotomy and replacement of tory - neuro stable, continues to have left leg numbness - GÓMEZ drain removed on 05/15 - PT/OT - postop L-spine x-rays with hardware in good placement - SCDs/TEDs, Lovenox - Dispo: home today Subjective: Continues to have right LE numbness and back pain. Objective: Awake. Alert. PERRL. EOMI Facial expression symmetrical Muscle strength full at 08/08 Neurosurgery Physical Exam - Vitals, I&O, Labs I and O 05/15/18 05/16/18 05/17/18 05:59 05:59 05:59 Intake Total 1100 1000 Output Total 2365 725 Balance -1265 275 Intake: Oral (ml) 1100 1000 Output: Urine (ml) 2300 725 Toilet 550 Urinal 2300 175 GÓMEZ Drain Output (ml) 65 #1 Right Back Saul 65 Kamara Other: Intake Quantity Yes Yes Sufficient Number of Voids Toilet 1 Urinal 1 1 Number of Stools Toilet 1 Vital Signs Temp Pulse Resp BP Pulse Ox 36.6 C 63 16 117/81 H 94 05/16/18 07:54 05/16/18 07:54 05/16/18 07:54 05/16/18 07:54 05/16/18 07:54 Laboratory Results 05/14/18 04:57 05/14/18 04:57 ICD10 Worksheet Patient Problems: Problems Problem Status Onset Fusion of spine of lumbar region Acute
[2018-05-16] MEDS: SENNOSIDES/DOCUSATE SODIUM TAB PO SCH (08:54)
[2018-05-16] MEDS: METHOCARBAMOL 750 MG TAB PO SCH (08:54)
[2018-05-16] MEDS: ENOXAPARIN 40 MG/0.4 ML SYR SC SCH (08:54)
[2018-05-16] MEDS: GABAPENTIN 100 MG CAP PO SCH (08:54)
[2018-05-16] MEDS: FAMOTIDINE 20 MG TAB PO SCH (08:55)
[2018-05-16] MEDS: POLYETHYLENE GLYCOL 3350 17 GM PKT PO SCH (08:58)
--- NOTE | 2018-05-16 11:22 | ASMTLACE ---
[facility] Length of stay for Answers: 3 days current admission Acuity / Level of Answers: Yes Care: Did the patient have an inpatient admission? Comorbidities - select Answers: Opioid dependence all that apply / Chronic pain Other Notes: Hypothyroid # of Emergency department Answers: 0 visits in the last 6 months Score: 11 Date Signed: 05/16/2018 11:22 AM Electronically Signed By:Ana Rosado RN
--- NOTE | 2018-05-16 11:24 | ASMTDCNOTE ---
Case Management Discharge Discharge Order Complete? Answers: Yes Patient to Obtain Answers: via Family Medications Transportation Arranged Answers: Family/Friends Discharge Comments Notes: Medically cleared for discharge. No needs. Date Signed: 05/16/2018 11:23 AM Electronically Signed By:Ana Rosado RN
--- NOTE | 2018-05-18 15:16 | GDS ---
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 DISCHARGE DIAGNOSIS: Status post removal of a right-sided tory L3-S1 with L5-S1 foraminotomy, replace ment of hardware. HISTORY AND PHYSICAL: Please see admission history and physical. COURSE: The patient is a 42-year-old male who previously underwent an L3-S1 transforaminal lumbar in terbody fusion. He had persistent right leg radicular symptoms. A CT scan and MRI showed bony overg rowth in the right L5-S1 foramen causing compression of the right S1 and L5 nerve roots. He was take n to the operating room on 05/13/2018, where he underwent removal of the right L3 through S1 tory with a right L5-S1 foraminotomy and replacement of the hardware. There were no intraoperative complicati ons, and he was admitted to the floor for observation. On the floor, he made fair progress with phys ical therapy and occupational therapy. His pain was controlled with p.o. pain medications. He was d ischarged home in stable condition with home health care on 05/16/2018. Patient was discharged with postoperative instructions and recommended he return for neurosurgical followup appointment in 10-14 days. /[id number]/MODL
== END 2018-05-16 12:15 | disposition home or self-care (01) | DRG 518 ==
LOC: F3N 05:26
PROVIDERS: ADMIT Neurological Surgery; ATTEND Neurological Surgery
DX: T84.89XA Other specified complication of internal orthopedic prosthetic devices, implants and grafts, initial encounter (principal); M89.38 Hypertrophy of bone, other site; M54.16 Radiculopathy, lumbar region; M48.07 Spinal stenosis, lumbosacral region; Z98.1 Arthrodesis status
CPT/HCPCS: 97116-GP; 97161-GP; 97165-GO; 97535-GO; C1713; J0171; J0690; J1100; J1170; J1650; J2250; J2274; J2405; J2704; J3010; J3360